=== PATIENT | female | born 1985 | race Caucasian/White ===

== ENCOUNTER 2017-04-01 22:05 | Emergency (ER) | payer OTHER ==
[2017-04-01 22:16] VITALS: BP 91/57; PULSE 82; TEMP 97.6; BMI 16.5
--- NOTE | 2017-04-01 23:36 | PDOC ---
History of Present Illness - General History Source: Patient Exam Limitations: No Limitations - History of Present Illness Initial Comments: 04/02/17 00:02 The patient is a 31-year-old female, /A0, with a significant past medical history of emphysema, and presents to the emergency department with abdominal pain since 2 days ago. She reports that the pain is located in the right suprapubic region, non-radiating, constant and sharp in nature. She reports that the pain has worsened tonight. She states that she has had this pain before , and was diagnosed with a UTI at that time. She denies any vaginal discharge or history of STDs. The patient denies chest pain, shortness of breath, headache and dizziness. The patient denies fever, chills, nausea, vomit, diarrhea and constipation. The patient denies dysuria, frequency, urgency and hematuria. Allergies: NKDA Past Surgical History: three c-sections Social History: current everyday smoker PCP: Dr. Carpenter <Carol Burnette - Last Filed: 04/02/17 00:14> <Daphne Conteh - Last Filed: 04/03/17 03:52> - General Chief Complaint: Pain Stated Complaint: LEFT SIDE PAIN Time Seen by Provider: 04/01/17 23:35 Past History <Carol Burnette - Last Filed: 04/02/17 00:14> - Past Medical History Asthma: No Cancer: No Cardiac Disorders: No COPD: No Diabetes: No HTN: No Suicide Attempt (Hx): No Seizures: No Thyroid Disease: No Other medical history: emphysema - Surgical History Abdominal Surgery: Yes - Reproductive History (#): 3 Para: 2 - Immunization History Immunization Up to Date: Yes - Psycho/Social/Smoking Cessation Hx Anxiety: No Suicidal Ideation: No Smoking Status: Yes Smoking History: Current every day smoker Have you smoked in the past 12 months: Yes Number of Cigarettes Smoked Daily: 3 Information on smoking cessation initiated: No 'Breaking Loose' booklet given: 04/15/14 Hx Alcohol Use: No Drug/Substance Use Hx: No Substance Use Type: None Hx Substance Use Treatment: No <Daphne Conteh - Last Filed: 04/03/17 03:52> - Past Medical History Allergies/Adverse Reactions: Allergies Allergy/AdvReac Type Severity Reaction Status Date / Time No Known Allergies Allergy Verified 04/01/17 22:16 Home Medications: Ambulatory Orders Amoxicillin - [Amoxicillin 500mg Capsule -] 500 mg PO TID #14 capsule 04/30/16 Review of Systems - Review of Systems Able to Perform ROS?: Yes Comments:: 04/02/17 00:02 CONSTITUTIONAL: Absent: fever, chills, diaphoresis, generalized weakness, malaise, loss of appetite HEENT: Absent: rhinorrhea, nasal congestion, throat pain, throat swelling, difficulty swallowing, mouth swelling, ear pain, eye pain, visual changes CARDIOVASCULAR: Absent: chest pain, syncope, palpitations, irregular heart rate, lightheadedness , peripheral edema RESPIRATORY: Absent: cough, shortness of breath, dyspnea with exertion, orthopnea, wheezing, stridor, hemoptysis GASTROINTESTINAL: Present: (+) abdominal pain Absent: abdominal distension, nausea, vomiting, diarrhea, constipation, melena, hematochezia GENITOURINARY: Absent: dysuria, frequency, urgency, hesitancy, hematuria, flank pain, genital pain MUSCULOSKELETAL: Absent: myalgia, arthralgia, joint swelling SKIN: Absent: rash, itching, pallor HEMATOLOGIC/IMMUNOLOGIC: Absent: easy bleeding, easy bruising, lymphadenopathy, frequent infections ENDOCRINE: Absent: unexplained weight gain, unexplained weight loss, heat intolerance, cold intolerance NEUROLOGIC: Absent: headache, focal weakness or paresthesias, dizziness, unsteady gait, seizure, mental status changes, bladder or bowel incontinence PSYCHIATRIC: Absent: anxiety, depression, suicidal or homicidal ideation, hallucinations. <Carol Burnette - Last Filed: 04/02/17 00:14> *Physical Exam - Vital Signs Last Vital Signs Temp Pulse Resp BP Pulse Ox 97.6 F 82 18 91/57 99 04/01/17 22:13 04/01/17 22:13 04/01/17 22:13 04/01/17 22:13 04/01/17 22:13 - Physical Exam Comments: 04/02/17 00:02 GENERAL: (+) Afebrile. Well developed, well nourished. Awake and alert. No acute distress. HEENT: Normocephalic, atraumatic. PERRLA, EOMI. No conjunctival pallor. Sclera are non- icteric. Moist mucous membranes. Oropharynx is clear. NECK: Supple. Full ROM. No JVD. Carotid pulses 2+ and symmetric, without bruits. No thyromegaly. No lymphadenopathy. CARDIOVASCULAR: Regular rate and rhythm. No murmurs, rubs, or gallops. Distal pulses are 2+ and symmetric. PULMONARY: No evidence of respiratory distress. Lungs clear to auscultation bilaterally. No wheezing, rales or rhonchi. ABDOMINAL: (+) Minimal LLQ and suprapubic tenderness. Soft. Non-distended. No rebound or guarding. No organomegaly. Normoactive bowel sounds. MUSCULOSKELETAL Normal range of motion at all joints. No bony deformities or tenderness. No CVA tenderness. EXTREMITIES: No cyanosis. No clubbing. No edema. No calf tenderness. SKIN: Warm and dry. Normal capillary refill. No rashes. No jaundice. NEUROLOGICAL: Alert, awake, appropriate. Cranial nerves 2-12 intact. No deficits to light touch and temperature in face, upper extremities and lower extremities. No motor deficits in the in face, upper extremities and lower extremities. Normoreflexic in the upper and lower extremities. Normal speech. Toes are down- going bilaterally. Gait is normal without ataxia. PSYCHIATRIC: Cooperative. Good eye contact. Appropriate mood and affect. 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 Evaluate for torsion. Findings : The uterus is anteverted and measures 6.7 x 4.5 x 6.1 cm. The left ovary measures 3.2 x 1.9 x 1.8 cm contains follicles and demonstrates normal arterial flow on color Doppler images. On endovaginal images trace fluid is noted in the cervix. Nabothian cysts are noted. Uterus is retroflexed. The endometrium measures 8 mm in diameter within normal limits. The left ovary has a normal appearance contains follicles and measures 3.2 x 1.9 x 1.6 cm and demonstrates normal arterial flow on color Doppler images. The right ovary measures 2 point by 1.5 x 1.5 cm has a normal appearance contains follicles and demonstrates normal arterial flow on color Doppler images. No free fluid seen. Impression: Normal appearance of the uterus, endometrium and both ovaries normal vascular flow seen bilaterally. Nabothian cyst noted in the cervix. THIS DOCUMENT HAS BEEN ELECTRONICALLY SIGNED 04/03/17 03:50 Pt comes with left side pain and she thinks it may be a UTI. UA is clear. We checked a sono to look for left adnexa, but it is normal. Pt will follow with GI and wire border assembler as needed. <Daphne Conteh - Last Filed: 04/03/17 03:52> *DC/Admit/Observation/Transfer - Attestations Scribe Attestion: 04/02/17 00:03 Documentation prepared by Carol Burnette, acting as durable medical equipment repairer for Daphne Conteh MD. <Carol Burnette - Last Filed: 04/02/17 00:14> - Discharge Dispostion Admit: No <Daphne Conteh - Last Filed: 04/03/17 03:52> Diagnosis at time of Disposition: Abdominal pain - Discharge Dispostion Disposition: HOME Condition at time of disposition: Stable - Referrals Referrals: Katty Meyers MD [Primary Care Provider] - - Patient Instructions Printed Discharge Instructions: DI for Abdominal Pain-Adult
[2017-04-01] MEDS ORDERED: ACETAMINOPHEN 325 MG TABLET (FP) PO ONE (23:39)
[2017-04-02 00:49] LABS: URINE APPEARANCE CLEAR; URINE BILIRUBIN NEGATIVE (NEGATIVE); URINE BLOOD NEGATIVE (NEGATIVE); URINE COLOR STRAW; URINE GLUCOSE (UA) NEGATIVE (NEGATIVE); URINE KETONE NEGATIVE (NEGATIVE); URINE LEUK ESTERASE NEGATIVE (NEGATIVE); URINE NITRITE NEGATIVE (NEGATIVE); URINE PROTEIN NEGATIVE (NEGATIVE); URINE UROBILINOGEN NEGATIVE E.U./dl (0.2-1.0)
[2017-04-02] MEDS ORDERED: ACETAMINOPHEN 325 MG TABLET (FP) ONE (01:00)
== END 2017-04-02 03:40 | disposition home or self-care (01) ==
LOC: JER 22:05
DX: R10.84 Generalized abdominal pain (principal); J43.8 Other emphysema; F17.210 Nicotine dependence, cigarettes, uncomplicated
CPT/HCPCS: 76830-TC; 81003; 84703; 99282-25

== ENCOUNTER 2017-08-29 11:40 | Inpatient (IN) | payer OTHER ==
[2017-08-29 11:46] VITALS: BMI 16.1
--- NOTE | 2017-08-29 12:02 | PDOC ---
History of Present Illness - General Chief Complaint: Cold Symptoms Stated Complaint: COUGH Time Seen by Provider: 08/29/17 12:01 - History of Present Illness Initial Comments: 32 year old female smoker (80 pack years) with emphysema presenting with cough and chest pain for the past two days. She describes the chest pain as pleuritic (worse with deep inspiration and cough) deep pressure in her lower ribs bilaterally and a mostly dry cough with occasional clear mucous production. The cough keeps her up at night. She does have 1 year old at home that has had some congestion for a week. Denies wheezing, chest tightness, fevers, chills, nausea , vomiting, diarrhea or any urinary symptoms. 08/29/17 12:14 Past History - Past Medical History Allergies/Adverse Reactions: Allergies Allergy/AdvReac Type Severity Reaction Status Date / Time No Known Allergies Allergy Verified 08/29/17 11:46 Home Medications: Ambulatory Orders Celecoxib [Celebrex] 08/29/17 Levofloxacin [Levaquin] 750 mg PO DAILY #4 tab 08/29/17 Asthma: No Cancer: No Cardiac Disorders: No COPD: No (emphysema) Diabetes: No HTN: No Seizures: No Thyroid Disease: No - Surgical History Abdominal Surgery: Yes - Reproductive History (#): 3 Para: 2 - Immunization History Immunization Up to Date: Yes - Suicide/Smoking/Psychosocial Hx Smoking Status: Yes Smoking History: Current every day smoker Have you smoked in the past 12 months: Yes Number of Cigarettes Smoked Daily: 5 Information on smoking cessation initiated: No 'Breaking Loose' booklet given: 04/15/14 Hx Alcohol Use: No Drug/Substance Use Hx: No Substance Use Type: None Hx Substance Use Treatment: No Review of Systems - Review of Systems Constitutional: Yes: Weakness. No: Chills, Diaphoresis, Fever HEENTM: No: Blurred Vision, Recent change in vision, Double Vision Respiratory: Yes: Cough. No: Shortness of Breath, Productive cough, Hemoptysis Cardiac (ROS): Yes: Chest Pain. No: Lightheadedness, Palpitations, Chest Tightness ABD/GI: No: Diarrhea, Nausea, Poor Appetite, Vomiting : No: Burning, Dysuria, Frequency Integumentary: No: Dryness, Erythema Neurological: Yes: Headache. No: Numbness Hematologic/Lymphatic: No: Anemia *Physical Exam - Vital Signs Last Vital Signs Temp Pulse Resp BP Pulse Ox 99.1 F 132 H 19 111/50 93 L 08/29/17 11:44 08/29/17 11:44 08/29/17 11:44 08/29/17 11:44 08/29/17 11:44 - Physical Exam General Appearance: Yes: Nourished, Appropriately Dressed. No: Apparent Distress HEENT: positive: EOMI, WILLIE, Normal Voice. negative: Normal ENT Inspection ( Erythematous posterior oropharnyx with mucous but slightly dry mucous membranes) Neck: positive: Trachea midline, Normal Thyroid, Supple. negative: Tender, Rigid Respiratory/Chest: positive: Lungs Clear, Normal Breath Sounds. negative: Chest Tender, Respiratory Distress, Accessory Muscle Use Gastrointestinal/Abdominal: positive: Normal Bowel Sounds, Flat, Soft. negative : Tender Musculoskeletal: positive: Normal Inspection Extremity: positive: Normal Inspection, Normal Range of Motion Integumentary: positive: Normal Color, Dry, Warm Neurologic: positive: Fully Oriented, Alert, Normal Mood/Affect, Normal Response , Motor Strength /5 ED Treatment Course - LABORATORY CBC & Chemistry Diagram: 08/29/17 12:21 08/29/17 13:15 Medical Decision Making - Medical Decision Making 32 year old female with significant smoking history, tachycardia, productive cough and chest pain most likely concerning for PNA. Less likely MSK pain given she does not have any reproducible pain and physical exam does not corroborate that. Patient has risk factors for PE but will hold off on D-Dimer or CTA if nothing on the CXR. 08/29/17 13:04 CXR showing infiltrate in left lower lobe, WBC 22, patient still tachycardic, and hypoxic. Gave one dose levaquin 750 and will obs admit the patient. 08/29/17 15:35 Admitting team responded. *DC/Admit/Observation/Transfer Diagnosis at time of Disposition: Pneumonia, Sepsis - Discharge Dispostion Condition at time of disposition: Stable Admit: Yes - Prescriptions Prescriptions: Levofloxacin [Levaquin] 750 mg PO DAILY #4 tab
[2017-08-29] MEDS ORDERED: ALBUTEROL SO4 2.5/IPRATROPIUM 0.5 INH SOL 3 ML VIAL.NEB. NEB ONE ×2 (12:19→12:30)
--- NOTE | 2017-08-29 12:34 | PDOC ---
Attending Attestation - Resident Resident Name: Lulú Khan - ED Attending Attestation I have performed the following: I have examined & evaluated the patient, The case was reviewed & discussed with the resident, I agree w/resident's findings & plan, Exceptions are as noted - Physicial Exam PE: 08/29/17 13:02 GENERAL: Awake, alert, and fully oriented HEAD: No signs of trauma EYES: PERRLA, EOMI, sclera anicteric, conjunctiva clear ENT: Auricles normal inspection, hearing grossly normal, nares patent, oropharynx clear without exudates. NECK: Normal ROM, supple, no lymphadenopathy, JVD, or masses LUNGS: Feint expiratory wheezings b/l. Speaking in full sentences HEART: Regular rate and rhythm, normal S1 and S2, no murmurs, rubs or gallops EXTREMITIES: Normal range of motion, no edema. No clubbing or cyanosis. No cords, erythema, or tenderness NEUROLOGICAL: Cranial nerves II through XII grossly intact. Normal speech, normal gait SKIN: Warm, Dry, normal turgor, no rashes or lesions noted. - Medical Decision Making 08/29/17 12:59 A portion of this note was written by my scribe, under my supervision. Vital Signs Temp Pulse Resp BP Pulse Ox 99.1 F 132 H 19 111/50 93 L 08/29/17 11:44 08/29/17 11:44 08/29/17 11:44 08/29/17 11:44 08/29/17 11:44 32 year old female c/ hx of smoking and asthma p/w SOB ,wheezing, coughing. + sick contacts with son. Albuterol minimally helpful. Denies chest pain. tactile fevers at home. Incidentally, also with RUQ and epigastric pain. I agree with resident plan. likely COPD exacerbation with URI. r/o PNA with chest radiograph, labs RUQ ultrasound for RUQ pain. Reassess. <Corona Rodrigues - Last Filed: 08/29/17 13:02> - HPI HPI: 08/29/17 12:41 32yr old female, pmhx of emphysema and asthma, who presents to the emergency room with 2 days of a productive cough with yellow sputum, wheezing, and chest tightness. She has been using her inhaler at home without relief. She reports sick contact with her congested son at home. She notes some RLQ pain that began today. Denies fever, chills, nausea, vomiting. Denies diarrhea, constipation. Social history: Tobacco use (80 pack years) PCP: Dr. Meyers <Carole Johnson - Last Filed: 08/29/17 13:31> Heart Score/ECG Review #1 ECG reviewed & interpreted by me at: 12:00 08/29/17 12:58 NSR 132, no std/dmitry, normal axis, normal intervals, QTC 411 msec, rightward axis deviation <Corona Rodrigues - Last Filed: 08/29/17 13:02>
[2017-08-29] MEDS ORDERED: SODIUM CHLORIDE 0.9% 1000 ML INFUS.BAG IV ONE (12:45)
[2017-08-29 12:47] LABS: MCH 30.5 pg (25.7-33.7); MCHC 32.8 g/dl (32.0-36.0); MEAN PLT VOLUME 8.2 fl (7.5-11.1); PLATELET COUNT 242 K/MM3 (134-434); RDW 13.9 % (11.6-15.6); WHITE BLOOD COUNT 23.7 K/mm3 (4.0-10.0)
[2017-08-29] MEDS ORDERED: predniSONE 20 MG TABLET (UD) PO ONE (12:57)
[2017-08-29 13:43] LABS: ALBUMIN 3.9 g/dl (3.4-5.0); ANION GAP 12 (8-16); CALCIUM 8.8 mg/dL (8.5-10.1); CO2 26 mmol/L (21-32); GLUCOSE,RANDOM 97 mg/dL (74-106)
[2017-08-29 13:46] LABS: BILIRUBIN,TOTAL 0.8 mg/dL (0.2-1.0); CREATININE 0.7 mg/dL (0.55-1.02); SGOT/AST 106 U/L (15-37); SGPT/ALT 61 U/L (12-78); TOT PROT 7.1 g/dl (6.4-8.2)
[2017-08-29 13:47] LABS: ALK PHOS 113 U/L (45-117)
[2017-08-29] MEDS ORDERED: predniSONE 20 MG TABLET (UD) ONE (14:12)
[2017-08-29 14:29] LABS: TOTAL CELLS COUNTED 100
[2017-08-29] MEDS ORDERED: LEVOFLOXACIN 750 MG IVPB 150 ML IVPB ONE ×2 (14:50→14:56)
[2017-08-29] MEDS ORDERED: ACETAMINOPHEN 325 MG TABLET (FP) ONE (14:53)
--- NOTE | 2017-08-29 15:56 | HP ---
CHIEF COMPLAINT: cough and chest pain PCP: Dr. Nuno HISTORY OF PRESENT ILLNESS: 32 yr old woman with hx of emphysema and current everyday smoker presents with nonproductive cough and chest pain since Monday. Generally "feels like crap." has 1-yr old at home with similar symptoms. Does not get the flu vaccine because it "gives her the flu" ER course was notable for: (1) IVF (2) levoquin (3) PAST MEDICAL HISTORY: emphysema PAST SURGICAL HISTORY: Social History: Smoking: daily smoker, last cigarette last night Alcohol: denies Allergies No Known Allergies Allergy (Verified 08/29/17 11:46) HOME MEDICATIONS: Spiriva inhaler, prn use REVIEW OF SYSTEMS CONSTITUTIONAL: Present: generalized weakness, malaise, Absent: fever, chills, diaphoresis, loss of appetite, HEENT: Present: rhinorrhea, nasal congestion Absent: , throat pain, throat swelling, difficulty swallowing CARDIOVASCULAR: Present: chest pain, Absent: syncope, palpitations, RESPIRATORY: Persent: cough, Absent: shortness of breath, dyspnea with exertion, GASTROINTESTINAL: Absent: abdominal pain, abdominal distension, nausea, vomiting, diarrhea, constipation, melena, hematochezia GENITOURINARY: Absent: dysuria, frequency, urgency, hesitancy, hematuria, flank pain, genital pain MUSCULOSKELETAL: Absent: myalgia, arthralgia, joint swelling, back pain, neck pain SKIN: Absent: rash, itching, pallor PHYSICAL EXAMINATION Vital Signs - 24 hr 08/29/17 08/29/17 11:44 15:02 Temperature 99.1 F 102.9 F H Pulse Rate 132 H Pulse Rate [ 122 H Left Radial] Respiratory 19 22 Rate Blood Pressure 111/50 Blood Pressure 82/55 [Left Arm] O2 Sat by Pulse 93 L 90 L Oximetry (%) GENERAL: Awake, alert, and fully oriented, in mild discomfort. HEAD: Normal with no signs of trauma. EYES: Pupils equal, round and reactive to light, extraocular movements intact, sclera anicteric, conjunctiva clear. No lid lag. EARS, NOSE, THROAT: oropharynx clear without exudates, eduntulism. Moist mucous membranes. NECK: Normal range of motion, supple without lymphadenopathy, JVD, or masses. LUNGS: b/l rhonchi from mid-lower lungs worse on right. No wheezes, and no crackles. No accessory muscle use. HEART: Regular rate and rhythm, normal S1 and S2 without murmur, rub or gallop. ABDOMEN: Soft, nontender, not distended, normoactive bowel sounds Laboratory Results - last 24 hr 08/29/17 08/29/17 08/29/17 12:21 12:21 12:21 WBC 23.7 H D RBC 4.09 Hgb 12.5 Hct 38.0 MCV 93.0 MCH 30.5 MCHC 32.8 RDW 13.9 D Plt Count 242 MPV 8.2 Total Counted 100 Neutrophils % No Result Required. Neutrophils % (Manual) 91 H* Lymphocytes % No Result Required. Lymphocytes % (Manual) 6 L Monocytes % (Manual) 3 L Sodium Cancelled Potassium Cancelled Chloride Cancelled Carbon Dioxide Cancelled Anion Gap Cancelled BUN Cancelled Creatinine Cancelled Creat Clearance w eGFR Cancelled Random Glucose Cancelled Calcium Cancelled Total Bilirubin Cancelled AST Cancelled ALT Cancelled Alkaline Phosphatase Cancelled Total Protein Cancelled Albumin Cancelled Lipase Cancelled Serum , Qual Negative 08/29/17 13:15 WBC RBC Hgb Hct MCV MCH MCHC RDW Plt Count MPV Total Counted Neutrophils % Neutrophils % (Manual) Lymphocytes % Lymphocytes % (Manual) Monocytes % (Manual) Sodium 138 Potassium 3.4 L D Chloride 100 Carbon Dioxide 26 Anion Gap 12 BUN 6 L Creatinine 0.7 Creat Clearance w eGFR > 60 Random Glucose 97 Calcium 8.8 Total Bilirubin 0.8 D AST 106 H D ALT 61 D Alkaline Phosphatase 113 Total Protein 7.1 Albumin 3.9 Lipase 47 L Serum , Qual ASSESSMENT/PLAN: 32 yr old woman with hx of emphysema(not on home oxygen) current everyday smoker presenting with cough and malaise admitted for sepsis secondary to community acquired pna. #Sepsis 2/2 CAP - levoquin 750mg IV in ED - rocephin and azithromycin, likely able to transition to PO if remains afebrile overnight and s/s improve in the morning - IVF if not tolerating po, check lactic acid, if acidosis present, increase fluids - tylenol po for fever - pending flu swab results - albuterol treatments prn, oxygen supplementation prn - was given prednisone in the ED, will defer taper for now, she is breathing comfortably on room air - urine ag for legionella/strep #chest pain likely musk from coughing, however: - r/o cardiac cause, trop x1 - if symptoms persistent, continue cardiac w/u - ekg tachy with no acute ischemic changes #Hyopkalemia - replete, 40meq po - likely due to poor po intake #Smoking cessation - not ready at this time, will offer cessation materials at discharge #DVT - low risk, encourage ambulation #diet - regular Visit type - Emergency Visit Emergency Visit: Yes ED Registration Date: 08/29/17 Care time: The patient presented to the Emergency Department on the above date and was hospitalized for further evaluation of their emergent condition. - New Patient This patient is new to me today: Yes Date on this admission: 08/29/17 - Critical Care Critical Care patient: No
--- NOTE | 2017-08-29 17:32 | HP ---
CHIEF COMPLAINT: cough and chest pain x2 days PCP: Dr Meyers HISTORY OF PRESENT ILLNESS: Patient is a 32 F with PMHx of emphysema presenting with a 2 day history of retrosternal non radiating crushing chest pain which is 9/10 worsened by breathing and movement with no known relieving factors. There is associated cough, productive of yellowish sputum, no hemoptysis. The patient described chills, but no objective fevers. There is also a history of nasal congestion and sore throat, with a history of contact with her son who also has had nasal congestion over the past week. There is no SOB. There is associated malaise and generalized weakness but no n/v/syncope/no dizziness/ no facial droop or weakness of any side of the body. No change in bowel habits, no dysuria or change in urinary frequency. Patient was tachycardic at 132 and febrile at 102.9 in the ER. 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 Smoking: Current smoker, 4-5 /day since 13 years Alcohol:Denies use Drugs: remote use of marijuana 20years ago Family History: Has a cousin-former smoker with emphysema Father 62- DM, HTN Mother 58- HTN Child-10yr- eating disorder Allergies No Known Allergies Allergy (Verified 08/29/17 11:46) HOME MEDICATIONS: [facility] Home Medications Medication Instructions Recorded Celecoxib [Celebrex] 08/29/17 Levofloxacin [Levaquin] 750 mg PO DAILY #4 tab 08/29/17 REVIEW OF SYSTEMS CONSTITUTIONAL: fever+, chills+,malaise+, Absent: diaphoresis, generalized weakness, loss of appetite, weight change HEENT: nasal congestion+,throat pain+ Absent: rhinorrhea,throat swelling, difficulty swallowing, mouth swelling, ear pain, eye pain, visual changes CARDIOVASCULAR: Absent: chest pain+, syncope, palpitations, irregular heart rate, lightheadedness, peripheral edema RESPIRATORY: Absent: cough, shortness of breath, dyspnea with exertion, orthopnea, wheezing, stridor, hemoptysis GASTROINTESTINAL: Absent: abdominal pain, abdominal distension, nausea, vomiting, diarrhea, constipation, melena, hematochezia GENITOURINARY: Absent: dysuria, frequency, urgency, hesitancy, hematuria, flank pain, genital pain MUSCULOSKELETAL: Absent: myalgia, arthralgia, joint swelling, back pain, neck pain SKIN: Absent: rash, itching, pallor HEMATOLOGIC/IMMUNOLOGIC: Absent: easy bleeding, easy bruising, lymphadenopathy, frequent infections ENDOCRINE: Absent: unexplained weight gain, unexplained weight loss, heat intolerance, cold intolerance NEUROLOGIC: Absent: headache, focal weakness or paresthesias, dizziness, unsteady gait, seizure, mental status changes, bladder or bowel incontinence PSYCHIATRIC: Absent: anxiety, depression, suicidal or homicidal ideation, hallucinations. PHYSICAL EXAMINATION GENERAL: Awake, alert, and fully oriented, in no obvious respiratory distress. HEAD: Normal with no signs of trauma. EYES: Pupils equal, round and reactive to light, extraocular movements intact, sclera anicteric, conjunctiva clear. No lid lag. EARS, NOSE, THROAT: Ears normal, nares patent, oropharynx clear without exudates. Moist mucous membranes, absent teeth. NECK: Normal range of motion, supple without lymphadenopathy, JVD, or masses. LUNGS: Breath sounds equal, wheezes anteriorly on L, and fine creps on L posteriorly. No accessory muscle use. HEART: Tachycardiic, S1 and S2, 2/6 apical murmur, no rub or gallop. ABDOMEN: Soft, nontender, not distended, normoactive bowel sounds, no guarding, no rebound, no masses. No hepatomegaly or splenomegaly. MUSCULOSKELETAL: Normal range of motion at all joints. No bony deformities or tenderness. No CVA tenderness. UPPER EXTREMITIES: 2+ pulses, warm, well-perfused. No cyanosis. No clubbing. No peripheral edema. LOWER EXTREMITIES: 2+ pulses, warm, well-perfused. No calf tenderness. No peripheral edema. NEUROLOGICAL: Cranial nerves II-XII intact. Normal speech. Normal gait. PSYCHIATRIC: Cooperative. Good eye contact. Appropriate mood and affect. SKIN: Warm, dry, normal turgor, no rashes or lesions noted, normal capillary refill. ASSESSMENT/PLAN: A 32 Year Female smoker with PMHx of emphysema presenting with a two day hx of chest pain and fever and admitted for community acquired pneumonia # Sepsis 2/2 Community acquired Pneumonia: Based on fever, tachycardia, leucocytosis and the focus on CXR, Iv Ceftriaxone 1gm daily IV Azithromycin 500mg daily Lactic acid Sputum culture Acetaminophen Urinary Antigens #Chest pain: Likely pleuritic, however want to R/o cardiac source TROPS stat- will follow and see if symptoms don't resolve, need for cardiac follow up acetaminophen #Hypokalemia Kcl 40meq PO stat BMP, Mg #Emphysema Duoneb as needed # Smoking Counseling on cessation # DVT Early ambulation # FEN Oral fluids as tolerated Electrolyte- will replete as needed Nutrition- Regular diet # Dispo Admit to Med Surg Visit type - Emergency Visit Emergency Visit: Yes ED Registration Date: 08/29/17 Care time: The patient presented to the Emergency Department on the above date and was hospitalized for further evaluation of their emergent condition. - New Patient This patient is new to me today: Yes Date on this admission: 08/29/17 - Critical Care Critical Care patient: No
[2017-08-29] MEDS ORDERED: ALBUTEROL SO4 2.5/IPRATROPIUM 0.5 INH SOL 3 ML VIAL.NEB. NEB PRN (17:35)
[2017-08-29] MEDS ORDERED: POTASSIUM CHLORIDE ORAL LIQUID 20 MEQ/15 ML PO ONE ×2 (17:37→20:15)
--- NOTE | 2017-08-29 18:33 | PN ---
Teaching Attending Note Name of Resident: Ingrid Hernandez ATTENDING PHYSICIAN STATEMENT I saw and evaluated the patient. I reviewed the resident's note and discussed the case with the resident. I agree with the resident's findings and plan as documented. SUBJECTIVE:32yo F with PMH emphsema and continuous tobacco dependence presented to the ER c/o chills and productive cough of yellow sputum x 2days. started developing substernal CP today which prompted her to come to the ER. pain is worse when she coughs. assoc with chills. states her son had similar cough and nasal congestion over the weekend and started feeling better. denies Fever, N/V/ C/D, hemoptysis, denies weight loss. states her son is not in day care. denies significant family history for cardiac disease admits to THC use but denies Illicit drug use OBJECTIVE: Last Vital Signs Temp Pulse Resp BP Pulse Ox 98.5 F 90 20 90/50 92 L 08/29/17 17:45 08/29/17 17:45 08/29/17 17:45 08/29/17 17:45 08/29/17 17:45 General NAD thin appearing woman HEENT no teeth. no oral ulcers CV S1 S2 RRR no murmur/rub/gallop no chest wall tenderness Lungs rales at the bases. no wheezing abdomen soft NT/ND extremities no pedal edema ASSESSMENT AND PLAN: 32yo F wtih PMH emphysema and continuous tobacco dependence presented to the ER with cough and CP and admitted with sepsis due to PNA 1. Sepsis due to CAP- medicine admission. Tm102.9. check lactic acid. currently saturating 98% on RA. s/p IVF and no longer tachycardic. started on levaquin. will switch to Ceftriaxone and Azithromcyin. nebs prn. supplemental oxygen for spO2 <90%. check sputum Cx, urinary legionella/strep ag. will hold steroids at this time. Flu negative 2. CP- most likely pleuritic in nature. low risk factors (only factor smoking) check cardiac enzymes. 3. Emphsyema- possible alpha 1 antripsyin deficiency? has significant family hx. cont inhalers 4. Continuous tobacco dependence- counseled on importance of tobacco cessation and progression of lung disease with continued use. nicotine patch 5. hypokalemia- Kcl 40meq po 6. DVT ppx- EAM
[2017-08-29] MEDS: NICOTINE 14 MG/24 HOURS TOPICAL PATCH TD SCH (20:31)
[2017-08-29] MEDS ORDERED: MAGNESIUM SULF 50% (8.12 MEQ/2 ML-1 GM VIAL) IVPB ONE (20:47)
[2017-08-29] MEDS ORDERED: SODIUM CHLORIDE 1,000 ML IV SCH ×2 (21:00)
[2017-08-30 07:02] LABS: BASOPHIL 0.1 % (0-2.0); MCH 31.3 pg (25.7-33.7); MCHC 33.4 g/dl (32.0-36.0); MEAN CELL VOLUME 93.9 fl (80-96); MEAN PLT VOLUME 9.1 fl (7.5-11.1); PLATELET COUNT 186 K/MM3 (134-434); RDW 13.7 % (11.6-15.6); WHITE BLOOD COUNT 21.7 K/mm3 (4.0-10.0)
[2017-08-30 07:08] LABS: ANION GAP 5 (8-16); CALCIUM 8.3 mg/dL (8.5-10.1); CO2 27 mmol/L (21-32); CREATININE 0.6 mg/dL (0.55-1.02); GLUCOSE,RANDOM 106 mg/dL (74-106); MAGNESIUM 1.8 mg/dL (1.8-2.4)
[2017-08-30] MEDS ORDERED: cefTRIAXone SODIUM 1 GM VIAL ONE (09:46)
[2017-08-30] MEDS ORDERED: DEXTROSE 5%-WATER 100 ML IVPB ONE (09:46)
[2017-08-30] MEDS ORDERED: PT OWN MED DRAWER 7, Y5N ONE (09:47)
[2017-08-30] MEDS: CEFTRIAXONE 1 GM in DEXTROSE 5%-WATER 100 ML IVPB SCH (09:57)
[2017-08-30] MEDS: ENOXAPARIN NA (PORCINE) 40 MG/0.4 ML DISP.SYRIN SQ SCH (09:58)
[2017-08-30] MEDS: NICOTINE 14 MG/24 HOURS TOPICAL PATCH TD SCH (10:07)
[2017-08-30] MEDS: SODIUM CHLORIDE 1,000 ML IV SCH (12:24)
[2017-08-30] MEDS: AZITHROMYCIN IVPB 500 MG in DEXTROSE 5%-WATER - 250 ML IVPB SCH (12:37)
--- NOTE | 2017-08-30 15:12 | PN ---
Physical Exam: SUBJECTIVE: Patient seen and examined. No acute events overnight. Pt reports breathing better, reduced cough, and feeling overall better. She endorses an intermittent headache and pleuritic chest pain worsened with cough, but denies n/v/d/c, and dysuria. OBJECTIVE: Vital Signs Period Temp Pulse Resp BP Sys/Garcia Pulse Ox Last 24 Hr 97.5 F-98.5 F 65-90 18-20 73-90/37-50 92-96 GENERAL: very thin young lady lying in bed, awake, alert, and fully oriented, in no acute distress. HEAD: Normal with no signs of trauma. EYES: PERRL, extraocular movements intact, sclera anicteric, conjunctiva clear. No ptosis. ENT: Ears normal, nares patent, oropharynx clear without exudates, moist mucous membranes. NECK: Trachea midline, full range of motion, supple. LUNGS: faint rales in LLL base, no rhonchi, no wheezing HEART: Regular rate and rhythm, S1, S2 without murmur, rub or gallop. ABDOMEN: Soft, nontender, nondistended, normoactive bowel sounds, no guarding, no rebound, no hepatosplenomegaly, no masses. EXTREMITIES: 2+ pulses, warm, well-perfused, no edema. NEUROLOGICAL: Cranial nerves II through XII grossly intact. Normal speech, gait not observed. PSYCH: Normal mood, normal affect. SKIN: Warm, dry, normal turgor, no rashes or lesions noted Laboratory Results - last 24 hr 08/29/17 08/29/17 08/29/17 18:50 19:30 19:30 WBC RBC Hgb Hct MCV MCH MCHC RDW Plt Count MPV Neutrophils % Lymphocytes % Monocytes % Eosinophils % Basophils % Sodium Potassium Chloride Carbon Dioxide Anion Gap BUN Creatinine Random Glucose Lactic Acid 1.4 Calcium Magnesium 1.5 L Troponin I < 0.02 08/30/17 08/30/17 08/30/17 06:15 06:15 06:15 WBC 21.7 H RBC 3.62 Hgb 11.3 Hct 34.0 MCV 93.9 MCH 31.3 MCHC 33.4 RDW 13.7 Plt Count 186 D MPV 9.1 D Neutrophils % 93.0 H D Lymphocytes % 4.0 L D Monocytes % 2.9 L Eosinophils % 0.0 D Basophils % 0.1 Sodium 141 Potassium 4.5 D Chloride 109 H Carbon Dioxide 27 Anion Gap 5 L BUN 9 D Creatinine 0.6 Random Glucose 106 Lactic Acid 1.5 Calcium 8.3 L Magnesium 1.8 Troponin I Active Medications Generic Name Dose Route Start Last Admin Trade Name Freq PRN Reason Stop Dose Admin Albuterol/Ipratropium 1 amp 08/29/17 17:35 08/29/17 22:40 Duoneb - NEB 1 amp Q4H PRN Administration SHORTNESS OF BREATH Enoxaparin Sodium 40 mg 08/30/17 10:00 08/30/17 09:58 Lovenox - SQ 40 mg DAILY FELIX Administration Azithromycin 500 mg/ Dextrose 250 mls @ 250 mls/hr 08/30/17 10:00 08/30/17 12: 37 IVPB 250 mls/hr DAILY FELIX Administration Ceftriaxone Sodium 1 gm/ 100 mls @ 200 mls/hr 08/30/17 10:00 08/30/17 09:57 Dextrose IVPB 200 mls/hr DAILY FELIX Administration Sodium Chloride 1,000 mls @ 100 mls/hr 08/30/17 10:34 08/30/17 12:24 Normal Saline - IV 09/01/17 20:52 100 mls/hr ASDIR FELIX Administration Nicotine 14 mg 08/29/17 18:45 08/30/17 10:07 Nicoderm Patch - TD Not Given DAILY FELIX ASSESSMENT/PLAN: 32F w/ hx of emphysema presenting w/ acute cough and pleuritic chest pain, found to have fever, tachycardia, leukocytosis, elevated aminotransferases, and a CXR showing a LLL infiltrate, admitted for sepsis 2/2 CAP, being treated with ceftriaxone and azithromycin. #Sepsis- 2/2 CAP -afebrile, wbc trending down -continue ceftriaxone and azithromycin (day 2 of abx) -f/u Bcx, sputum cx, Urine legionella -duonebs q4h PRN #Hypotension -BP 73-81/37-48 since yesterday -pt asymptomatic, states she normally has low BP -continue NS at 100cc/hr #diarrhea -f/u c.diff -continue to assess #smoking cessation -pt stated that she is not ready to quit yet -refused nicotine patch #low BMI -pediatric registered nurse consulted -f/u recs #hx of emphysema -as pt has several relatives with emphysema and is young with abnormal LFTs, considering alpha-1 antitrypsin deficiency. -will call pt's pig farmer to see if she was ever worked up #transaminitis -trend for now, possibly just due to sepsis #FEN/ppx -NS at 100 -elecrolytes wnl -soft diet as pt has very poor dentition -no GI ppx indicated -lovenox 40 -Hay Oden MD PGY1 Visit type - Emergency Visit Emergency Visit: Yes ED Registration Date: 08/29/17 Care time: The patient presented to the Emergency Department on the above date and was hospitalized for further evaluation of their emergent condition. - New Patient This patient is new to me today: Yes Date on this admission: 08/30/17 - Critical Care Critical Care patient: No - Discharge Referral Referred to [facility] Med P.C.: No
[2017-08-30] MEDS: guaiFENesin 600 MG TABLET.ER (FP) PO SCH ×2 (16:08→21:11)
--- NOTE | 2017-08-30 18:02 | PN ---
Teaching Attending Note Name of Resident: Hay Oden ATTENDING PHYSICIAN STATEMENT I saw and evaluated the patient. I reviewed the resident's note and discussed the case with the resident. I agree with the resident's findings and plan as documented. SUBJECTIVE: feels better , still with R/L chest pain with cough and respiration only. cough with sputum production OBJECTIVE: NAD , AAOx3 . Dry MM CV: RRR. Lungs : fine cracklesa t L base Abd :Soft, NT, ND < NL BS Ext: no edema ASSESSMENT AND PLAN: 32 y/o lady with h/o COPD who presented with fever adn cough and was found to have LLL CAP 1- LLL CAP: improved. no more fever , leukoytosis improved - cont CTX and Azithro - follow legionela/.pneumococcal Ag - follow blood cx - trend WBC - avoid cough suppressants - start IVF 2- h/o ASthma , not active - cont ALbuterol PRN 3- diarrhea : one watery BM. could be due to Abx use, but need to r/o c diff - check C diff 4- DVT PX . Lovenox
[2017-08-30] MEDS ORDERED: guaiFENesin 600 MG TABLET.ER (FP) PO SCH (22:00)
[2017-08-31] MEDS: SODIUM CHLORIDE 1,000 ML IV SCH ×2 (01:35→10:51)
[2017-08-31 07:29] LABS: BASOPHIL 0.1 % (0-2.0); EOSINOPHIL 0.3 % (0-4.5); MCH 31.1 pg (25.7-33.7); MCHC 33.5 g/dl (32.0-36.0); MEAN PLT VOLUME 8.7 fl (7.5-11.1); NEUTROPHILS 81.4 % (42.8-82.8); PLATELET COUNT 184 K/MM3 (134-434); RDW 13.7 % (11.6-15.6); WHITE BLOOD COUNT 11.5 K/mm3 (4.0-10.0)
[2017-08-31 08:08] LABS: CALCIUM 7.9 mg/dL (8.5-10.1)
[2017-08-31 08:15] LABS: ALBUMIN 2.6 g/dl (3.4-5.0); ALK PHOS 88 U/L (45-117); ANION GAP 8 (8-16); BILIRUBIN,TOTAL 0.4 mg/dL (0.2-1.0); CO2 26 mmol/L (21-32); CREATININE 0.5 mg/dL (0.55-1.02); GLUCOSE,RANDOM 82 mg/dL (74-106); PHOSPHOROUS 2.2 mg/dL (2.5-4.9); SGOT/AST 73 U/L (15-37); SGPT/ALT 74 U/L (12-78); TOT PROT 5.1 g/dl (6.4-8.2)
[2017-08-31] MEDS ORDERED: DEXTROSE 5%-WATER 100 ML IVPB ONE (10:46)
[2017-08-31] MEDS ORDERED: cefTRIAXone SODIUM 1 GM VIAL ONE (10:46)
[2017-08-31] MEDS ORDERED: PT OWN MED DRAWER 7, Y5N ONE (10:47)
[2017-08-31] MEDS: guaiFENesin 600 MG TABLET.ER (FP) PO SCH ×2 (10:49→21:41)
[2017-08-31] MEDS: ENOXAPARIN NA (PORCINE) 40 MG/0.4 ML DISP.SYRIN SQ SCH (10:49)
[2017-08-31] MEDS: CEFTRIAXONE 1 GM in DEXTROSE 5%-WATER 100 ML IVPB SCH (10:50)
[2017-08-31] MEDS: NICOTINE 14 MG/24 HOURS TOPICAL PATCH TD SCH ×2 (10:50→10:55)
[2017-08-31] MEDS: AZITHROMYCIN IVPB 500 MG in DEXTROSE 5%-WATER - 250 ML IVPB SCH (10:50)
[2017-08-31] MEDS: NAPH,MB-DB/K PH,MBDB POWDER PACKET PO SCH ×2 (10:50→21:41)
--- NOTE | 2017-08-31 17:10 | PN ---
Teaching Attending Note Name of Resident: Ingrid Hernandez ATTENDING PHYSICIAN STATEMENT I saw and evaluated the patient. I reviewed the resident's note and discussed the case with the resident. I agree with the resident's findings and plan as documented. SUBJECTIVE: No abd exam, has no N/V. diarrhea improved. SOB improved. OBJECTIVE: NAD , AAOx3 .MMM CV: RRR. Lungs : clear to auscultation Abd :Soft, TTP in all quadrants, slightly more distended than yesterday. hyperactive high pitched BS . Diaz's Neg Ext: no edema ASSESSMENT AND PLAN: 32 y/o lady with h/o COPD who presented with fever and cough and was found to have LLL CAP 1- LLL CAP: improved. no more fever , leukoytosis almost normalized - Cont CTX and Azithro . will switch to levaquin tomorrow - legionela/.pneumococcal Ag Neg - follow blood cx - trend WBC tomorrow - Start IVF 2- h/o ASthma , not active - cont ALbuterol PRN 3- Diarrhea : Improved . abd is tender today and has hyperactive high pitched BS. need to r/o SBO. also , still need to r/o c diff - C diff pending - Check KUB 4- Transaminitis : likely due to sepsis . likely due to sepsis. improved , no suspicion for biliary etiology. DVT PX . Lovenox possible dc tomorrow
[2017-08-31 19:27] LABS: URINE APPEARANCE SLCLOUDY; URINE BILIRUBIN NEGATIVE (NEGATIVE); URINE BLOOD NEGATIVE (NEGATIVE); URINE COLOR LTYELLOW; URINE GLUCOSE (UA) NEGATIVE (NEGATIVE); URINE KETONE NEGATIVE (NEGATIVE); URINE NITRITE NEGATIVE (NEGATIVE); URINE PROTEIN NEGATIVE (NEGATIVE); URINE UROBILINOGEN NEGATIVE mg/dL (0.2-1.0)
--- NOTE | 2017-08-31 21:45 | PN ---
Physical Exam: SUBJECTIVE: Patient seen and examined Still having pleuritic chest pain. cough is now dry. No fevers overnight. Said she had not passed stool overnight. OBJECTIVE: Vital Signs Period Temp Pulse Resp BP Sys/Agrcia Pulse Ox Last 24 Hr 98.8 F-99.9 F 74-91 19-20 79-99/43-67 97-98 GENERAL: The patient is awake, alert, ENT: oropharynx clear without exudates, moist mucous membranes, absent teeth. LUNGS: Breath sounds equal, clear to auscultation bilaterally, no wheezes, no crackles, no accessory muscle use. HEART: Regular rate and rhythm, S1, S2 without murmur, rub or gallop. ABDOMEN: Soft, tenderness in suprapubic and R quadrant , nondistended, hyperactive high pitched bowel sounds, mild guarding, no rebound, no hepatosplenomegaly, no masses, no CVA tenderness. EXTREMITIES: 2+ pulses, warm, well-perfused, no edema. NEUROLOGICAL: Cranial nerves II through XII grossly intact. Normal speech, gait not observed. PSYCH: Normal mood, normal affect. Laboratory Results - last 24 hr 08/31/17 08/31/17 08/31/17 06:05 06:05 17:30 WBC 11.5 H D RBC 3.23 L Hgb 10.1 L D Hct 30.0 L MCV 93.0 MCH 31.1 MCHC 33.5 RDW 13.7 Plt Count 184 MPV 8.7 Neutrophils % 81.4 Lymphocytes % 13.3 D Monocytes % 4.9 Eosinophils % 0.3 D Basophils % 0.1 Sodium 144 Potassium 4.0 Chloride 110 H Carbon Dioxide 26 Anion Gap 8 BUN 7 D Creatinine 0.5 L Creat Clearance w eGFR > 60 Random Glucose 82 D Calcium 7.9 L Phosphorus 2.2 L Magnesium 2.0 Total Bilirubin 0.4 D AST 73 H D ALT 74 D Alkaline Phosphatase 88 D Total Protein 5.1 L D Albumin 2.6 L D Urine Color Ltyellow Urine Appearance Slcloudy Urine pH 5.0 D Urine Protein Negative Urine Glucose (UA) Negative Urine Ketones Negative Urine Blood Negative Urine Nitrite Negative Urine Bilirubin Negative Urine Urobilinogen Negative Microbiology 08/30/17 14:35 Urine For Antigen Detection Legionella Antigen - Final - presumptively negative 08/30/17 14:35 Urine For Antigen Detection Streptococcus pneumoniae Antigen (M - Final-presumptively negative 08/29/17 15:04 Nasopharyngeal Swab Influenza Types A,B Antigen (PIPPA) - Final presumptively negative 08/29/17 15:04 Nasopharyngeal Swab - Final 08/30/17 13:33 Stool Clostridium difficile (PCR) - Preliminary- pending 08/30/17 06:45 Sputum - Expectorated Sputum Culture - Preliminary NORMAL RESPIRATORY RONDA 08/29/17 20:00 Blood - Peripheral Venous Blood Culture - Preliminary NO GROWTH OBTAINED AFTER 48 HOURS, INCUBATION TO CONTINUE FOR 3 DAYS. 08/29/17 20:00 Blood - Peripheral Venous Blood Culture - Preliminary NO GROWTH OBTAINED AFTER 48 HOURS, INCUBATION TO CONTINUE FOR 3 DAYS. Active Medications Generic Name Dose Route Start Last Admin Trade Name Freq PRN Reason Stop Dose Admin Acetaminophen 650 mg 08/31/17 10:27 Tylenol - PO Q6H PRN FEVER OR PAIN Albuterol/Ipratropium 1 amp 08/29/17 17:35 08/29/17 22:40 Duoneb - NEB 1 amp Q4H PRN Administration SHORTNESS OF BREATH Enoxaparin Sodium 40 mg 08/30/17 10:00 08/31/17 10:49 Lovenox - SQ 40 mg DAILY FELIX Administration Guaifenesin 1,200 mg 08/30/17 15:45 08/31/17 10:49 Mucinex - PO 1,200 mg BID FELIX Administration Azithromycin 500 mg/ Dextrose 250 mls @ 250 mls/hr 08/30/17 10:00 08/31/17 10: 50 IVPB 250 mls/hr DAILY FELIX Administration Ceftriaxone Sodium 1 gm/ 100 mls @ 200 mls/hr 08/30/17 10:00 08/31/17 10:50 Dextrose IVPB 200 mls/hr DAILY FELIX Administration Sodium Chloride 1,000 mls @ 100 mls/hr 08/30/17 10:34 08/31/17 10:51 Normal Saline - IV 09/01/17 20:52 100 mls/hr ASDIR FELIX Administration Nicotine 14 mg 08/29/17 18:45 08/31/17 10:55 Nicoderm Patch - TD Not Given DAILY FELIX Potassium Phos/Sodium Phos 1 packet 08/31/17 10:00 08/31/17 10:50 Phos-Nak Packet - PO 1 packet BID FELIX Administration ASSESSMENT/PLAN: 32F w/ hx of emphysema presenting w/ acute cough and pleuritic chest pain, found to have fever, tachycardia, leukocytosis, elevated aminotransferases, and a CXR showing a LLL infiltrate, admitted for sepsis 2/2 CAP, being treated with ceftriaxone and azithromycin. #Sepsis- 2/2 CAP -afebrile, wbc trending down -continue ceftriaxone and azithromycin (day 3 of abx) - Bcx,- -ve - sputum cx-ve - Urine legionella-ve - C diff pending -duonebs q4h PRN #Abdominal tenderness -Hyperactive high pitched bowel sounds -generalized abdominal tenderness w/ distension -KUB- no radiographic evidence of small bowel obstruction #Hypotension -BP improved -pt asymptomatic, states she normally has low BP -continue NS at 100cc/hr #diarrhea -f/u c.diff- pending -continue to assess - passed formed stool later in day #smoking cessation -pt stated that she is not ready to quit yet -refused nicotine patch #low BMI -registered pharmacist consulted -f/u recs #hx of emphysema -as pt has several relatives with emphysema and is young with abnormal LFTs, considering alpha-1 antitrypsin deficiency. -will call pt's finisher machine to see if she was ever worked up #transaminitis -trend for now, possibly just due to sepsis #FEN/ppx -NS at 100 -elecrolytes wnl -soft diet as pt has very poor dentition -no GI ppx indicated -lovenox 40 Visit type - Emergency Visit Emergency Visit: Yes ED Registration Date: 08/29/17 Care time: The patient presented to the Emergency Department on the above date and was hospitalized for further evaluation of their emergent condition. - New Patient This patient is new to me today: No - Critical Care Critical Care patient: No - Discharge Referral Referred to [facility] Med P.C.: No
[2017-08-31 21:48] LABS: URINE LEUK ESTERASE Negative (NEGATIVE)
[2017-08-31] MEDS: ACETAMINOPHEN 325 MG TABLET (FP) PO PRN (22:21)
[2017-09-01] MEDS: SODIUM CHLORIDE 1,000 ML IV SCH ×2 (01:32→15:26)
[2017-09-01 07:29] LABS: BASOPHIL 0.5 % (0-2.0); EOSINOPHIL 1.3 % (0-4.5); MCH 31.2 pg (25.7-33.7); MCHC 33.2 g/dl (32.0-36.0); MEAN CELL VOLUME 93.8 fl (80-96); MEAN PLT VOLUME 8.5 fl (7.5-11.1); NEUTROPHILS 62.7 % (42.8-82.8); PLATELET COUNT 202 K/MM3 (134-434); RDW 13.6 % (11.6-15.6); WHITE BLOOD COUNT 6.9 K/mm3 (4.0-10.0)
[2017-09-01] MEDS: ACETAMINOPHEN 325 MG TABLET (FP) PO PRN (07:51)
[2017-09-01 07:58] LABS: ALBUMIN 2.5 g/dl (3.4-5.0); ALK PHOS 110 U/L (45-117); ANION GAP 8 (8-16); BILIRUBIN,TOTAL 0.4 mg/dL (0.2-1.0); CALCIUM 7.6 mg/dL (8.5-10.1); CO2 27 mmol/L (21-32); CREATININE 0.4 mg/dL (0.55-1.02); GLUCOSE,RANDOM 81 mg/dL (74-106); MAGNESIUM 1.9 mg/dL (1.8-2.4); PHOSPHOROUS 3.8 mg/dL (2.5-4.9); SGOT/AST 70 U/L (15-37); SGPT/ALT 88 U/L (12-78)
[2017-09-01 09:46] VITALS: TEMP 97.8
[2017-09-01] MEDS ORDERED: cefTRIAXone SODIUM 1 GM VIAL ONE (09:48)
[2017-09-01] MEDS ORDERED: DEXTROSE 5%-WATER 100 ML IVPB ONE (09:49)
--- NOTE | 2017-09-01 09:49 | EKG ---
Test Reason : Blood Pressure : / mmHG Vent. Rate : 132 BPM Atrial Rate : 132 BPM P-R Int : 128 ms QRS Dur : 070 ms QT Int : 278 ms P-R-T Axes : 071 101 063 degrees QTc Int : 411 ms SINUS TACHYCARDIA RIGHTWARD AXIS CANNOT RULE OUT ANTERIOR INFARCT , AGE UNDETERMINED ABNORMAL ECG Confirmed by JOANNA WINSTON MD ([id number]) on 09/01/2017 9:49:24 AM Referred By: Confirmed By:JOANNA WINSTON MD
[2017-09-01] MEDS: CEFTRIAXONE 1 GM in DEXTROSE 5%-WATER 100 ML IVPB SCH (09:51)
[2017-09-01] MEDS ORDERED: PT OWN MED DRAWER 7, Y5N ONE (11:34)
[2017-09-01] MEDS: AZITHROMYCIN IVPB 500 MG in DEXTROSE 5%-WATER - 250 ML IVPB SCH (11:40)
[2017-09-01] MEDS: guaiFENesin 600 MG TABLET.ER (FP) PO SCH (11:40)
[2017-09-01] MEDS: NAPH,MB-DB/K PH,MBDB POWDER PACKET PO SCH (11:44)
[2017-09-01] MEDS: NICOTINE 14 MG/24 HOURS TOPICAL PATCH TD SCH (11:45)
[2017-09-01] MEDS: ENOXAPARIN NA (PORCINE) 40 MG/0.4 ML DISP.SYRIN SQ SCH (11:45)
--- NOTE | 2017-09-01 13:40 | PN ---
Teaching Attending Note Name of Resident: Ingrid Hernandez ATTENDING PHYSICIAN STATEMENT I saw and evaluated the patient. I reviewed the resident's note and discussed the case with the resident. I agree with the resident's findings and plan as documented. SUBJECTIVE: no fever or chill. no ABD pain, no distention , cont to have BM , but no diarrhea. has no N/V , tolerated her diet OBJECTIVE: NAD , AAOx3 .MMM CV: RRR. Lungs: clear to auscultation Abd :Soft, mild TTP in suprapubic area ,ND. hyperactive BS . Diaz's Neg Ext: no edema ASSESSMENT AND PLAN: 32 y/o lady with h/o COPD who presented with fever and cough and was found to have LLL CAP 1- LLL CAP: improved. no more fever ,or leukoytosis . Cx neg - Switch to levaquin for 1 more day ( today day 4 of Abx ) - legionela/.pneumococcal Ag Neg - blood cx NGTD 2- H/o ASthma , not active - cont ALbuterol PRN 3- Diarrhea : resolved . KUB yesterday with mild ileus . Abd exam this as much improved and tenderness is only to the supra-pubic area. refused repeat KUB this am. now agrees. since there is no po intolerance, no distention and benign abd exam, will watch . she was given clear instruction of sx and signs of SBO and worsening ileus, so she can come back to ER if anything cjhanges C diff , still pending. Unlikely c diff. diarrha resolved . will follow it even after dc 4- Transaminitis : likely due to sepsis . likely due to sepsis. improved , no suspicion for biliary etiology. DC today pending KUB
[2017-09-01 14:34] VITALS: BP 111/54; PULSE 60
--- NOTE | 2017-09-01 14:50 | DS ---
Physical Exam: SUBJECTIVE: Patient seen and examined Feels better today. The cough and chest pain are improved and she passed normal stool. OBJECTIVE: Vital Signs Period Temp Pulse Resp BP Sys/Garcia Pulse Ox Last 24 Hr 97.8 F-99.9 F 54-78 15-20 80-108/44-67 97-98 PHYSICAL EXAM GENERAL: The patient is awake, alert, and fully oriented, in no acute distress. HEAD: Normal with no signs of trauma. EYES: PERRL, extraocular movements intact, sclera anicteric, conjunctiva clear. ENT: Ears normal, nares patent, oropharynx clear without exudates, moist mucous membranes. Absent teeth. NECK: Trachea midline, full range of motion, supple. LUNGS: Breath sounds equal, clear to auscultation bilaterally, no wheezes, no crackles, no accessory muscle use. HEART: Regular rate and rhythm, S1, S2 without murmur, rub or gallop. ABDOMEN: Soft, mild tenderness in the epigastric and suprapubic areas, mildly distended, hyperactive bowel sounds, no guarding, no rebound, no hepatosplenomegaly, no masses. Absent myers'ssign and absent CVA tenderness. EXTREMITIES: 2+ pulses, warm, well-perfused, no edema. NEUROLOGICAL: Cranial nerves II through XII grossly intact. Normal speech, gait not observed. PSYCH: Normal mood, normal affect. LABS Laboratory Results - last 24 hr 08/31/17 09/01/17 09/01/17 17:30 06:20 06:20 WBC 6.9 D RBC 3.16 L Hgb 9.9 L Hct 29.7 L MCV 93.8 MCH 31.2 MCHC 33.2 RDW 13.6 Plt Count 202 MPV 8.5 Neutrophils % 62.7 D Lymphocytes % 29.3 D Monocytes % 6.2 Eosinophils % 1.3 D Basophils % 0.5 D Sodium 144 Potassium 3.7 Chloride 109 H Carbon Dioxide 27 Anion Gap 8 BUN 3 L D Creatinine 0.4 L Creat Clearance w eGFR > 60 Random Glucose 81 Calcium 7.6 L Phosphorus 3.8 D Magnesium 1.9 Total Bilirubin 0.4 AST 70 H ALT 88 H Alkaline Phosphatase 110 D Total Protein 5.0 L Albumin 2.5 L Urine Color Ltyellow Urine Appearance Slcloudy Urine pH 5.0 D Ur Specific [place] 1.010 Urine Protein Negative Urine Glucose (UA) Negative Urine Ketones Negative Urine Blood Negative Urine Nitrite Negative Urine Bilirubin Negative Urine Urobilinogen Negative Ur Leukocyte Esterase Negative HOSPITAL COURSE: Date of Admission:08/29/17 Date of Discharge: 09/01/17 32F with hx of emphysema presenting with acute cough and pleuritic chest pain, found to have fever, tachycardia, leukocytosis, elevated aminotransferases, and a CXR showing a LLL infiltrate, admitted for sepsis secondary to community acquired pneumonia, treated with ceftriaxone and azithromycin for 4 days to complete 750mg levofloxacin PO. She was admitted with Tmax 102.9, SC-122, 82/55 and sating at 90 in room air and had leucocytosis of 23.7 but negative lactic acidosis. Microbiology 08/30/17 14:35 Urine For Antigen Detection Legionella Antigen - Final 08/30/17 14:35 Urine For Antigen Detection Streptococcus pneumoniae Antigen (M - Final 08/29/17 15:04 Nasopharyngeal Swab Influenza Types A,B Antigen (PIPPA) - Final 08/29/17 15:04 Nasopharyngeal Swab - Final 08/30/17 13:33 Stool Clostridium difficile (PCR) - Preliminary 08/30/17 06:45 Sputum - Expectorated Sputum Culture - Preliminary NORMAL RESPIRATORY RONDA 08/29/17 20:00 Blood - Peripheral Venous Blood Culture - Preliminary NO GROWTH OBTAINED AFTER 48 HOURS, INCUBATION TO CONTINUE FOR 3 DAYS. 08/29/17 20:00 Blood - Peripheral Venous Blood Culture - Preliminary NO GROWTH OBTAINED AFTER 48 HOURS, INCUBATION TO CONTINUE FOR 3 DAYS. Laboratory Tests 08/29/17 08/29/17 12:21 12:21 WBC 23.7 H D Hgb 12.5 Hct 38.0 MCV 93.0 MCH 30.5 MCHC 32.8 Sodium Cancelled CARDIAC ENZYMES Troponin I < 0.02 ng/ml (0.00-0.05) 08/29/17 19:30 Abnormal Lab Results 09/01/17 09/01/17 06:20 06:20 RBC 3.16 L Hgb 9.9 L Hct 29.7 L Chloride 109 H BUN 3 L D Creatinine 0.4 L Calcium 7.6 L AST 70 H ALT 88 H Total Protein 5.0 L Albumin 2.5 L She was treated for : #Sepsis- secondary to community acquired pneumonia - Her WBC-6.9 , T-98, SC-54, 88/44, RR-16 sating 97 in room air #Abdominal tenderness- no nausea or vomiting, patient has been passing gas and stool -Hyperactive high pitched bowel sounds -mild abdominal tenderness with distension -KUB- showed ileus, with no radiographic evidence of small bowel obstruction -Was advised on signs of obstruction #Hypotension- patient was hydrated with iv normal saline at 100cc/hr -BP improved -pt asymptomatic, states she normally has low BP #diarrhea -c.diff sample sent, pending results - passed formed stool later in day #smoking cessation -pt stated that she is not ready to quit yet -refused nicotine patch #low BMI -registered nurse renal consulted -f/u recs #hx of emphysema -as pt has several relatives with emphysema and is young with abnormal LFTs, considering alpha-1 antitrypsin deficiency. - Advised to follow up with her client relationship consultant #transaminitis trended down from AST-106 to 70 and ALP-113 - 110 not likely due to biliary etiology Minutes to complete discharge: 43 Discharge Summary Reason For Visit: SEPSIS,PNEUMONIA Current Active Problems Abdominal pain (Acute) PNA (pneumonia) (Acute) Pleuritic pain (Acute) Sepsis (Acute) COPD - Chronic obstructive lung disease (Chronic) Condition: Improved - Instructions Diet, Activity, Other Instructions: You came in with fever, cough, and chest pain and were admitted for pneumonia. You received 4 days of intravenous antibiotic and will complete the last day of Levofloxacin 750mg tab at home tomorrow. While you were here, your belly became painful and you had an abdominal Xray that showed slowed movement of your small bowel, but no obstruction. You have been passing stool while here and eating without vomiting. You need to be careful about your belly - take small amounts of food and liquids and watch to see whether or not you are getting worse. If you notice the belly is swelling, getting more painful, or you develop fevers , vomiting or are unable to pass stool or gas, please go to the nearest emergency room Follow up with your outpatient doctor in one week If you have increased cough, fevers or think that the symptoms of pneumonia are worsening, see your primary doctor immediately or go to the nearest emergency room Please continue with your other home medications Referrals: Katty Meyers MD [Primary Care Provider] - 1 Week (Follow up for L lobar pneumonia ) Disposition: HOME - Home Medications Comprehensive Discharge Medication List: Ambulatory Orders Albuterol Sulfate Inhaler - [Ventolin HFA Inhaler -] 2 inh PO Q6H PRN 08/30/17 Tiotropium [place] [Spiriva] 2 inh IH DAILY 08/30/17 Levofloxacin [Levaquin] 750 mg PO DAILY #1 tablet 09/01/17 This patient is new to me today: No Emergency Visit: Yes ED Registration Date: 08/29/17 Care time: The patient presented to the Emergency Department on the above date and was hospitalized for further evaluation of their emergent condition. Critical Care patient: No - Discharge Referral Referred to [facility] Med P.C.: No
== END 2017-09-01 15:44 | disposition home or self-care (01) | DRG 720 ==
LOC: JER 11:40 → JERBED 15:42 → OBSVTOIN 16:38 → J5S 18:41
PROVIDERS: ADMIT Internal Medicine; ATTEND Internal Medicine
DX: A41.9 Sepsis, unspecified organism (principal); J18.9 Pneumonia, unspecified organism; J43.9 Emphysema, unspecified; F17.210 Nicotine dependence, cigarettes, uncomplicated; R07.89 Other chest pain; E87.6 Hypokalemia; J45.909 Unspecified asthma, uncomplicated; R19.7 Diarrhea, unspecified; I95.9 Hypotension, unspecified; Z68.1 Body mass index [BMI] 19.9 or less, adult; R74.0 Nonspecific elevation of levels of transaminase and lactic acid dehydrogenase [LDH]
CPT/HCPCS: 36415; 71020-TC; 74000-TC; 76705-TC; 80048; 80053; 81003; 83605; 83690; 83735; 84100; 84484; 84703; 85025; 87040; 87070; 87205; 87493; 87804; 87899; 93005; 93010; 94640; 97116-GP; 97161-GP; 99283-25; G0378

== ENCOUNTER 2017-12-13 22:11 | Emergency (ER) | payer OTHER ==
[2017-12-13 22:28] VITALS: BMI 17.3
--- NOTE | 2017-12-13 23:18 | PDOC ---
History of Present Illness - General History Source: Patient Exam Limitations: No Limitations - History of Present Illness Initial Comments: 12/14/17 01:07 The patient is a 32-year-old female, with a significant past medical history of emphysema, who presents to the ED with right-sided rib pain that began last Wednesday 12/06. 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 Since then the patient has been experiencing difficulty breathing and pain to the area. She reports a nonproductive cough. The patient has been taking Tylenol with no relief of her symptoms. LMP was on 11/26. She denies any fever, chills, runny nose, sore throat, nausea, vomiting, diarrhea, or abdominal pain. She denies any chest pain. Surgical Hx: 3 C-sections. PCP: Dr. Marc Pham <Lia Bradley - Last Filed: 12/14/17 01:07> <Kailyn Nuñez - Last Filed: 12/14/17 01:30> - General Chief Complaint: Pain Stated Complaint: PAIN Time Seen by Provider: 12/13/17 23:18 Past History <Lia Bradley - Last Filed: 12/14/17 01:07> - Past Medical History Asthma: No Cancer: No Cardiac Disorders: No COPD: No (emphysema) Diabetes: No HTN: No Seizures: No Thyroid Disease: No - Surgical History Abdominal Surgery: Yes - Reproductive History (#): 3 Para: 2 - Immunization History Immunization Up to Date: Yes - Suicide/Smoking/Psychosocial Hx Smoking Status: Yes Smoking History: Current every day smoker Have you smoked in the past 12 months: Yes Number of Cigarettes Smoked Daily: 20 Information on smoking cessation initiated: No 'Breaking Loose' booklet given: 08/29/17 Hx Alcohol Use: No Drug/Substance Use Hx: No Substance Use Type: None Hx Substance Use Treatment: No <Kailyn Nuñez - Last Filed: 12/14/17 01:30> - Past Medical History Allergies/Adverse Reactions: Allergies Allergy/AdvReac Type Severity Reaction Status Date / Time No Known Allergies Allergy Verified 12/13/17 22:25 Home Medications: Ambulatory Orders Tiotropium [place] [Spiriva] 2 inh IH DAILY 08/30/17 Ibuprofen [Motrin -] 600 mg PO TID PRN #15 tablet 12/14/17 Review of Systems - Review of Systems Able to Perform ROS?: Yes Comments:: 12/14/17 01:17 GENERAL/CONSTITUTIONAL: No fever or chills. No weakness. HEAD, EYES, EARS, NOSE AND THROAT: No change in vision. No ear pain or discharge. No sore throat. CARDIOVASCULAR: No chest pain or shortness of breath. RESPIRATORY: (+)Shortness of breath and cough. No wheezing, or hemoptysis. SKIN: No rash GASTROINTESTINAL: No nausea, vomiting, diarrhea or constipation. GENITOURINARY: No dysuria, frequency, or change in urination. MUSCULOSKELETAL: (+)Right-sided rib pain. No joint swelling or pain. No neck or back pain. NEUROLOGIC: No headache, vertigo, loss of consciousness, or change in strength/ sensation. ENDOCRINE: No increased thirst. No abnormal weight change. HEMATOLOGIC/LYMPHATIC: No anemia, easy bleeding, or history of blood clots. ALLERGIC/IMMUNOLOGIC: No hives or skin allergy. <Lia Bradley - Last Filed: 12/14/17 01:07> *Physical Exam - Vital Signs Last Vital Signs Temp Pulse Resp BP Pulse Ox 98.8 F 77 20 93/55 97 12/13/17 22:26 12/13/17 22:26 12/13/17 22:26 12/13/17 22:26 12/13/17 22:26 - Physical Exam Comments: 12/14/17 01:18 GENERAL: Awake, alert, and fully oriented, in no acute distress HEAD: No signs of trauma MOUTH: (+)Edentulous ENT: Auricles normal inspection, hearing grossly normal, nares patent, oropharynx clear EYES: PERRLA, EOMI, sclera anicteric, conjunctiva clear without exudates. Moist mucosa. NECK: Normal ROM, supple, no lymphadenopathy, JVD, or masses LUNGS: Breath sounds equal, clear to auscultation bilaterally. No wheezes, and no crackles HEART: Regular rate and rhythm, normal S1 and S2, no murmurs, rubs or gallops ABDOMEN: Soft, nontender, normoactive bowel sounds. No guarding, no rebound. No masses MSK: (+)Point tenderness to right ribs. EXTREMITIES: Normal range of motion, no edema. No clubbing or cyanosis. No cords, erythema, or tenderness NEUROLOGICAL: Cranial nerves II through XII grossly intact. Normal speech, normal gait SKIN: Warm, Dry, normal turgor, no rashes or lesions noted <Lia Bradley - Last Filed: 12/14/17 01:07> - Vital Signs Last Vital Signs Temp Pulse Resp BP Pulse Ox 98.8 F 77 20 93/55 97 12/13/17 22:26 12/13/17 22:26 12/13/17 22:26 12/13/17 22:26 12/13/17 22:26 <Kailyn Nuñez - Last Filed: 12/14/17 01:30> Medical Decision Making - Medical Decision Making 12/14/17 00:26 32yo female with R rib pain after hitting her chest on the edge of the desk while reaching for her pencil -hx of emphysema -no resp distress -no rash or ecchymosis -b/l BS -will check rib series xray -motrin for pain -ucg -no PE risk factors <Kailyn Nuñez - Last Filed: 12/14/17 01:30> *DC/Admit/Observation/Transfer - Attestations Scribe Attestion: 12/14/17 01:21 Documentation prepared by Lia Bradley, acting as curator medical museum for Kailyn Nuñez DO. <Lia Bradley - Last Filed: 12/14/17 01:07> - Discharge Dispostion Admit: No - Attestations Physician Attestion: 12/14/17 00:27 I, Dr. Kailyn Nuñez DO, attest that this document has been prepared under my direction and personally reviewed by me in its entirety. I further attest, that it accurately reflects all work, treatment, procedures and medical decision -making performed by me. <Kailyn Nuñez - Last Filed: 12/14/17 01:30> Diagnosis at time of Disposition: Rib pain on right side - Discharge Dispostion Disposition: HOME Condition at time of disposition: Stable - Prescriptions Prescriptions: Ibuprofen [Motrin -] 600 mg PO TID PRN #15 tablet PRN Reason: Pain - Referrals Referrals: Marc Pham MD [Primary Care Provider] - - Patient Instructions Printed Discharge Instructions: DI for Rib Contusion Additional Instructions: Please take all meds as prescribed. Please make an appointment to see your PMD in 2 days. Please return to the ED with any further complaints. - Post Discharge Activity
[2017-12-14] MEDS ORDERED: IBUPROFEN 600 MG TABLET (FP) PO ONE ×2 (01:32)
[2017-12-14 01:43] VITALS: BP 93/59; PULSE 76; TEMP 98.6
== END 2017-12-14 01:44 | disposition home or self-care (01) ==
LOC: JER 22:11
DX: S20.211A Contusion of right front wall of thorax, initial encounter (principal); W22.8XXA Striking against or struck by other objects, initial encounter; Y93.89 Activity, other specified; Y92.038 Other place in apartment as the place of occurrence of the external cause; Y99.8 Other external cause status; J43.8 Other emphysema; F17.210 Nicotine dependence, cigarettes, uncomplicated
CPT/HCPCS: 36415; 71101-TC-RT; 84702; 84703; 99282-25

== ENCOUNTER 2018-06-30 12:32 | Emergency (ER) | payer OTHER ==
[2018-06-30 12:48] VITALS: BP 84/56; PULSE 87; TEMP 98.8; BMI 16.8
[2018-06-30] MEDS ORDERED: ALBUTEROL SO4 2.5/IPRATROPIUM 0.5 INH SOL 3 ML VIAL.NEB. NEB ONE ×2 (13:16)
--- NOTE | 2018-06-30 13:21 | PDOC ---
History of Present Illness - General Chief Complaint: Shortness of Breath Stated Complaint: SOB Time Seen by Provider: 06/30/18 13:11 History Source: Patient Exam Limitations: No Limitations - History of Present Illness Initial Comments: 06/30/18 13:18 33 yr female history of COPD with cough shortness of breath worsened by the humid weather, uses spiriva when needed, states not working anymore. no fever no chest pain no drug use. Timing/Duration: reports: getting worse Severity: reports: mild Possible Cause: Yes: frequent episodes Past History - Past Medical History Allergies/Adverse Reactions: Allergies Allergy/AdvReac Type Severity Reaction Status Date / Time No Known Allergies Allergy Verified 06/30/18 12:48 Home Medications: Ambulatory Orders Tiotropium [place] [Spiriva] 2 inh IH DAILY 08/30/17 Ibuprofen [Motrin -] 600 mg PO TID PRN #15 tablet 12/14/17 Albuterol Sulfate Inhaler - [Ventolin Hfa Inhaler -] 1 - 2 inh PO Q4H #1 inhaler 06/30/18 Prednisone [Deltasone] 20 mg PO DAILY #4 tablet 06/30/18 Asthma: No Cancer: No Cardiac Disorders: No COPD: No (emphysema) Diabetes: No HTN: No Seizures: No Thyroid Disease: No - Surgical History Abdominal Surgery: Yes - Reproductive History (#): 3 Para: 2 - Immunization History Immunization Up to Date: Yes - Suicide/Smoking/Psychosocial Hx Smoking Status: Yes Smoking History: Current every day smoker Have you smoked in the past 12 months: Yes Number of Cigarettes Smoked Daily: 20 Information on smoking cessation initiated: No 'Breaking Loose' booklet given: 08/29/17 Hx Alcohol Use: No Drug/Substance Use Hx: No Substance Use Type: None Hx Substance Use Treatment: No Review of Systems - Review of Systems Able to Perform ROS?: Yes Is the patient limited [place]an proficient: No Constitutional: No: Symptoms Reported HEENTM: No: Symptoms Reported Respiratory: Yes: Symptoms reported, Cough, Shortness of Breath *Physical Exam - Vital Signs Last Vital Signs Temp Pulse Resp BP Pulse Ox 98.8 F 87 18 84/56 98 06/30/18 12:45 06/30/18 12:45 06/30/18 12:45 06/30/18 12:45 06/30/18 12:45 - Physical Exam General Appearance: Yes: Nourished, Appropriately Dressed, Thin HEENT: positive: EOMI, WILLIE, TMs Normal, Pharynx Normal Neck: positive: Supple. negative: Tender Respiratory/Chest: positive: Lungs Clear, Normal Breath Sounds, Decreased Breath Sounds. negative: Crackles, Rales, Wheezing Cardiovascular: positive: Regular Rhythm, Regular Rate Gastrointestinal/Abdominal: positive: Normal Bowel Sounds, Soft Musculoskeletal: positive: Normal Inspection Extremity: positive: Normal Capillary Refill, Normal Inspection, Normal Range of Motion Integumentary: positive: Normal Color, Dry, Warm Neurologic: positive: Fully Oriented, Alert, Normal Mood/Affect, Normal Response , Motor Strength 03/31 ED Treatment Course - RADIOLOGY Radiology Studies Ordered: Category Date Time Status CHEST PA & LAT [RAD] Stat Radiology 06/30/18 13:18 Ordered Medical Decision Making - Medical Decision Making 06/30/18 13:19 cc: cough short of breath no fever no chills speaking full sentences no distress 06/30/18 13:21 will get CXR give duoneb and re-asess bp checked on discharge 96/58. pt states that is her normal pressure, pt is very thin. denies dizzyness or headache I have encouraged pt to drink more water and make sure she eats regulary pt states she will. 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
[2018-06-30] MEDS ORDERED: predniSONE 20 MG TABLET (UD) PO ONE (13:45)
[2018-06-30] MEDS ORDERED: predniSONE 20 MG TABLET (UD) ONE (13:47)
== END 2018-06-30 14:08 | disposition home or self-care (01) ==
LOC: JER 12:32 → JERFT 12:32
PROC: 3E0F7GC Introduction of Other Therapeutic Substance into Respiratory Tract, Via Natural or Artificial Opening (ICD-10-PCS; principal; 2018-06-30)
DX: J44.9 Chronic obstructive pulmonary disease, unspecified (principal)
CPT/HCPCS: 71046-TC-FY; 99281-25; J7620

== ENCOUNTER 2019-04-30 02:27 | Emergency (ER) | payer SELFPAY, OTHER | END 2019-04-30 06:25 | disposition home or self-care (01) | LOC: JER 02:27 ==

== ENCOUNTER 2021-10-24 16:17 | Emergency (ER) | payer OTHER ==
[2021-10-24 16:21] VITALS: BP 92/59; PULSE 81; TEMP 98; BMI 16.8
[2021-10-24] MEDS ORDERED: IBUPROFEN 600 MG TABLET (FP) PO ONE ×2 (16:48→17:03)
== END 2021-10-24 17:58 | disposition home or self-care (01) ==
LOC: JER 16:17 → JERFT 16:17
DX: M25.511 Pain in right shoulder (principal)
CPT/HCPCS: 73030-TC-RT-FY; 99284-25

== ENCOUNTER 2023-05-31 21:31 | Emergency (ER) | payer OTHER ==
[2023-05-31 21:45] VITALS: BP 90/53; PULSE 82; RESP 16; TEMP 98; BMI 16.8
[2023-06-01] MEDS ORDERED: IBUPROFEN 600 MG TABLET (FP) PO ONE ×2 (00:12→00:34)
== END 2023-06-01 02:13 | disposition home or self-care (01) ==
LOC: JERFT 21:31 → JER 21:31
DX: M79.652 Pain in left thigh (principal); X50.9XXA Other and unspecified overexertion or strenuous movements or postures, initial encounter; Y93.83 Activity, rough housing and horseplay; Y92.9 Unspecified place or not applicable
CPT/HCPCS: 73552-TC-LT-FY; 99283-25

== ENCOUNTER 2024-08-22 17:14 | Observation (INO) | payer OTHER ==
[2024-08-22 17:23] VITALS: RESP 18; BMI 18.4
[2024-08-22 18:21] LABS: BASO % 0.9 % (0-2.0); EOS % 0.7 % (0-4.5); HEMATOCRIT 38.8 % (32.4-45.2); HEMOGLOBIN 12.9 GM/dL (10.7-15.3); MCH 31.9 pg (25.7-33.7); MCHC 33.2 g/dl (32.0-36.0); MEAN CELL VOLUME 96.2 fl (80-96); MEAN PLT VOLUME 8.3 fl (7.5-11.1); MONO % 4.8 % (3.8-10.2); NEUT % 71.6 % (42.8-82.8); PLATELET COUNT 351 10^3/uL (134-434); RBC 4.04 M/mm3 (3.60-5.2); RDW 13.9 % (11.6-15.6); WHITE BLOOD COUNT 12.1 K/mm3 (4.0-10.0)
[2024-08-22] MEDS: SODIUM CHLORIDE 1,000 ML IV STA (18:47)
[2024-08-22 18:49] LABS: ALBUMIN 4.3 g/dl (3.4-5.0); CALCIUM 9.5 mg/dL (8.5-10.1); MAGNESIUM 2.3 mg/dL (1.8-2.4)
[2024-08-22 18:53] LABS: CREATININE 0.7 mg/dL (0.55-1.3)
[2024-08-22 18:54] LABS: BILIRUBIN,TOTAL 0.3 mg/dL (0.2-1); TOT PROT 7.4 g/dl (6.4-8.2)
[2024-08-22 19:32] LABS: HIV INTERPRETATION NEGATIVE (NEGATIVE)
[2024-08-22] MEDS ORDERED: ONDANSETRON 4 MG/2 ML VIAL ONE (21:15)
[2024-08-22] MEDS ORDERED: MECLIZINE HCL 12.5 MG TABLET ONE (21:15)
[2024-08-22] MEDS: MECLIZINE HCL 12.5 MG TABLET PO ONE (21:24)
[2024-08-22] MEDS: ONDANSETRON 4 MG/2 ML VIAL IVPUSH ONE (21:33)
[2024-08-22] MEDS: SODIUM CHLORIDE 0.9% 1000 ML INFUS.BAG IV ONE (21:33)
[2024-08-23 02:43] VITALS: TEMP 97.8
[2024-08-23] MEDS: SODIUM CHLORIDE 1,000 ML IV STA (04:57)
[2024-08-23 08:06] LABS: HEMATOCRIT 34.4 % (32.4-45.2); HEMOGLOBIN 11.3 GM/dL (10.7-15.3); MCH 32.2 pg (25.7-33.7); MCHC 32.8 g/dl (32.0-36.0); MEAN CELL VOLUME 98.2 fl (80-96); PLATELET COUNT 217 10^3/uL (134-434); WHITE BLOOD COUNT 6.7 K/mm3 (4.0-10.0)
[2024-08-23 08:28] LABS: POTASSIUM 4.7 mmol/L (3.5-5.1)
[2024-08-23 08:30] LABS: CALCIUM 8.5 mg/dL (8.5-10.1)
[2024-08-23 08:31] LABS: BLOOD UREA NITROGEN 3.1 mg/dL (7-18); MAGNESIUM 2.1 mg/dL (1.8-2.4)
[2024-08-23 08:34] LABS: CREATININE 0.6 mg/dL (0.55-1.3); PHOSPHOROUS 3.7 mg/dL (2.5-4.9)
[2024-08-23 08:35] LABS: ALBUMIN 3.1 g/dl (3.4-5.0); BILIRUBIN,TOTAL 0.4 mg/dL (0.2-1)
[2024-08-23 08:36] LABS: TOT PROT 5.3 g/dl (6.4-8.2)
[2024-08-23 10:22] VITALS: BP 83/40; PULSE 64
== END 2024-08-23 15:14 | disposition home or self-care (01) ==
LOC: JER 17:14 → JERBED 22:52
PROVIDERS: ADMIT Internal Medicine; ATTEND Internal Medicine
PROC: 3E033GC Introduction of Other Therapeutic Substance into Peripheral Vein, Percutaneous Approach (ICD-10-PCS; principal; 2024-08-22)
PROC: 3E0337Z Introduction of Electrolytic and Water Balance Substance into Peripheral Vein, Percutaneous Approach (ICD-10-PCS; 2024-08-22)
DX: I95.9 Hypotension, unspecified (principal); J44.9 Chronic obstructive pulmonary disease, unspecified; S09.90XA Unspecified injury of head, initial encounter; W18.39XA Other fall on same level, initial encounter; Y93.89 Activity, other specified; Y92.89 Other specified places as the place of occurrence of the external cause; F17.210 Nicotine dependence, cigarettes, uncomplicated
CPT/HCPCS: 36415; 70450-TC; 71045-TC-FY; 80053; 80307; 83735; 84100; 84484; 84703; 85025; 85027; 86803; 87389; 93005; 93010; 93306-TC; 96361; 96374; 99285-25; G0378